=== PATIENT | female | born 1990 | race Native Hawaiian/Other Pacific Islander ===

== ENCOUNTER 2017-04-24 20:00 | Emergency (ER) | payer SELFPAY ==
--- NOTE | 2017-04-24 20:20 | NUR ---
PATIENT LEFT WITHOUT BEING SEEN BY DR. JAVIER. NO FURTHER CARE PROVIDED FOR PATIENT.
== END 2017-04-24 20:20 | disposition left against medical advice (07) ==
LOC: MED 20:00
DX: R51 Headache (principal); Z53.21 Procedure and treatment not carried out due to patient leaving prior to being seen by health care provider